=== PATIENT | male | born 1985 | race Caucasian/White ===

== ENCOUNTER 2020-08-20 15:19 | Emergency (ER) | payer OTHER ==
[2020-08-20 15:45] VITALS: O2SAT 95
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
[2020-08-20] MEDS ORDERED: Sodium Chloride 0.9% 1000 ML 1,000 ML IV STA (16:18)
[2020-08-20] MEDS ORDERED: Sodium Chloride 0.9% 1000 ML 1,000 ML ONE (16:35)
[2020-08-20 16:37] LABS: Absolute Neutrophil Ct (ANC) 4.62 (1.4-6.9); BASOPHIL % 0.3 % (0.0-0.4); Basophil (Absolute #) 0.02 (0-0.4); Eosinophil % 1.3 % (0.00-5.0); Hemoglobin 14.3 gm/dl (12.5-18.0); Lymphocyte (Absolute #) 2.29 (1.0-4.6); Lymphocytes % 29.1 % (24.0-44.0); Mean Corpuscular Hemoglobin 30.6 pg (26-32); Mean Corpuscular Hgb Concent. 32.5 g/dl (32-36); Monocyte (Absolute #) 0.85 (0.0-1.3); Monocytes % 10.8 % (0.0-12.0); Neutrophil % 58.5 % (36.0-66.0); Platelet Count 205 K/mm3 (150-450); Red Blood Count 4.68 M/mm3 (4.1-5.6); Red Cell Distribution Width 13.4 % (11.5-14.0); White Blood Count 7.9 K/mm3 (4.0-10.5)
[2020-08-20 16:49] LABS: ALBUMIN 4.8 g/dL (3.5-5.0); ALKALINE PHOSPHATASE 53 U/L (38-126); ANION GAP 14.5 MEQ/L (5-15); BLOOD UREA NITROGEN 18 mg/dL (9-20); CHLORIDE 101 mmol/L (98-107); Carbon Dioxide 29 mmol/L (22-30); Creatinine 1 0.82 mg/dL (0.66-1.25); EST GLOMERULAR FILTRATION RATE > 60.0 ML/MIN; Glucose 95 mg/dL (74-106); LIPASE 25 U/L (23-300); Potassium 4.1 mmol/L (3.5-5.1); SGOT/AST 24 U/L (17-59); SGPT/ALT 12 U/L (0-50); SODIUM 140 mmol/L (137-145); Total Protein 7.9 g/dL (6.3-8.2)
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
[2020-08-20] MEDS ORDERED: Hydromorphone 1 mg/ml Injection IV ONE (18:53)
[2020-08-20] MEDS ORDERED: Zanaflex 4 MG PO ONE (18:53)
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
[2020-08-20] MEDS ORDERED: Hydromorphone 1 mg/ml Injection ONE (19:01)
[2020-08-20 19:21] VITALS: BP 108/63
[2020-08-20 19:26] VITALS: PULSE 72
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
== END 2020-08-20 19:25 | disposition home or self-care (01) ==
LOC: ED 15:19
DX: T14.8XXA Other injury of unspecified body region, initial encounter (principal); V89.2XXA Person injured in unspecified motor-vehicle accident, traffic, initial encounter; Y93.9 Activity, unspecified; Y92.9 Unspecified place or not applicable; M79.651 Pain in right thigh; R07.81 Pleurodynia; M79.601 Pain in right arm; M50.90 Cervical disc disorder, unspecified, unspecified cervical region
CPT/HCPCS: 36415; 70450; 71250; 72125; 73090; 73130; 73200; 73521; 74176; 80053; 83605; 83690; 84484; 85025; 93005; 96360; 96374; 99284; J1170; A9270-GY